=== PATIENT | male | born 1945 | race Caucasian/White ===

== ENCOUNTER 2017-10-01 13:53 | Emergency (ER) | payer OTHER ==
[2017-10-01 14:04] VITALS: TEMP 98.1
--- NOTE | 2017-10-01 14:10 | CPEKG ---
Heart Rate: 67 RR Interval: 896 P-R Interval: 209 QRSD Interval: 86 QT Interval: 372 QTC Interval: 393 P [place]: 45 QRS [place]: -25 T Wave [place]: 10 EKG Severity - ABNORMAL ECG - EKG Impression: SINUS RHYTHM EKG Impression: INFERIOR INFARCT, AGE INDETERMINATE EKG Impression: BORDERLINE R WAVE PROGRESSION, ANTERIOR LEADS Electronically Signed By: César Ty 01-Oct-2017 19:55:39
[2017-10-01] MEDS ORDERED: ASPIRIN 81 MG CHEWABLE TAB PO ONE (14:20)
[2017-10-01] MEDS ORDERED: NITROGLYCERIN 0.4 MG BTL SL ONE (14:21)
--- NOTE | 2017-10-01 14:24 | EDPHY ---
H & P Stated Complaint: left chest pains radiating to posterior neck constant x2 days Time Seen by Provider: 10/01/17 14:06 HPI/ROS: Chief Complaint: Chest pain HPI: 72-year-old male with a history of hypothyroidism presenting with 2 days of left upper chest tightness radiating to his jaw. Has been constant. About a 4/10. No cyst shortness of breath. It is not exertional. There are no aggravating or alleviating factors. Patient has also been having some skipped beats the last couple days. He does have a history of PVCs in the past which a workup by Cardiology and/or [facility]. He has not had a stress test. Does not have a history of coronary disease. Does not have a family history of coronary artery disease. Denies any fevers or chills. No pleuritic chest pain. No nausea or vomiting. No abdominal pain. No calf pain or swelling. He has been sleeping same number pelvis usual. ROS: 10 point Review of Systems is negative except as noted in the HPI. PMH: Hypothyroidism Social History: No smoking, occasional alcohol, occasional marijuana Family History: non-contributory Physical Exam: Gen: Awake, Alert, No Distress HEENT: Nose: no rhinorrhea Eyes: PERRLA, EOMI Mouth: Moist mucosa Neck: Supple, no JVD Chest: nontender, lungs clear to auscultation Heart: S1, S2 normal, no murmur Abd: Soft, non-tender, no guarding Back: no CVA tenderness, no midline tenderness Ext: no edema, non-tender Skin: no rash Neuro: CN II-XII intact, Sensation grossly intact, Strength 5/5 in bilateral upper and lower extremities - Personal History Current Tetanus/Diphtheria Vaccine: Unsure - Medical/Surgical History Hx Asthma: No Hx Chronic Respiratory Disease: No Hx Diabetes: No Hx Cardiac Disease: No Hx Renal Disease: No Hx Cirrhosis: No Hx Alcoholism: No Hx HIV/AIDS: No Hx Splenectomy or Spleen Trauma: No Other PMH: HERNIA, sinus surgery x2, cellulitis. hypothyroidism - Social History Smoking Status: Never smoked Constitutional: Initial Vital Signs Temperature (C) 36.7 C 10/01/17 14:01 Heart Rate 74 10/01/17 14:01 Respiratory Rate 18 10/01/17 14:01 Blood Pressure 138/107 H 10/01/17 14:01 O2 Sat (%) 97 10/01/17 14:01 O2 Delivery Mode Room Air Allergies/Adverse Reactions: amoxicillin Allergy (Mild, Verified 01/27/16 08:52) Rash amoxicillin trihydrate [From Amoxil] Allergy (Verified 11/20/15 17:18) Home Medications: Medication Instructions Recorded Levothyroxine [Synthroid 175 mcg 175 mcg PO DAILY 06/25/12 (RX)] Medical Decision Making - Diagnostics EKG Interpretation: ECG time 2:08 p.m., sinus rhythm with a rate of 67, normal axis, normal intervals, no acute ST or T-wave changes. He does have Q-waves in the inferior leads consistent with an old inferior infarct. This is unchanged from an ECG report from 10/15/[address] Colvin. Imaging Results: Imaging Impressions Chest X-Ray 10/01/17 14:19 Impression: 1. Stable heart size since August 2006 without evidence of failure. 2. No source for acute chest pain identified. Imaging: I viewed and interpreted images myself ED Course/Re-evaluation: 72-year-old male with no significant risk factors for coronary disease presenting with 2 days of chest discomfort. Patient is concerned because he had a co-worker recently have a heart attack. Pain is been constant for the last 2 days. His ECG does show an inferior infarct0 of undetermined age however the patient had the exact same findings on ECG over a year ago when he was seen by Cardiology. His troponin is negative. Chest x-ray is unremarkable. No evidence of acute coronary syndrome at this time. Will discharge with plans for follow-up with Cardiology for outpatient stress testing, he will return for any worsening symptoms. - Data Points Laboratory Results: Laboratory Results 10/01/17 14:14 10/01/17 14:14 10/01/17 10/01/17 14:14 14:14 WBC 7.18 10^3/uL 10^3/uL (3.80-9.50) RBC 4.51 10^6/uL 10^6/uL (4.40-6.38) Hgb 14.8 g/dL g/dL (13.7-17.5) Hct 42.2 % % (40.0-51.0) MCV 93.6 fL fL (81.5-99.8) MCH 32.8 pg pg (27.9-34.1) MCHC 35.1 g/dL g/dL (32.4-36.7) RDW 14.1 % % (11.5-15.2) Plt Count 348 10^3/uL 10^3/uL (150-400) MPV 9.4 fL fL (8.7-11.7) Neut % (Auto) 64.7 % % (39.3-74.2) Lymph % (Auto) 19.8 % % (15.0-45.0) Hardy % (Auto) 11.0 % % (4.5-13.0) Eos % (Auto) 3.5 % % (0.6-7.6) Baso % (Auto) 0.7 % % (0.3-1.7) Nucleat RBC Rel Count 0.0 % % (0.0-0.2) Absolute Neuts (auto) 4.65 10^3/uL 10^3/uL (1.70-6.50) Absolute Lymphs (auto) 1.42 10^3/uL 10^3/uL (1.00-3.00) Absolute Monos (auto) 0.79 10^3/uL 10^3/uL (0.30-0.80) Absolute Eos (auto) 0.25 10^3/uL 10^3/uL (0.03-0.40) Absolute Basos (auto) 0.05 10^3/uL 10^3/uL (0.02-0.10) Absolute Nucleated RBC 0.00 10^3/uL 10^3/uL (0-0.01) Immature Gran % 0.3 % % (0.0-1.1) Immature Gran # 0.02 10^3/uL 10^3/uL (0.00-0.10) Sodium 140 mEq/L mEq/L (134-144) Potassium 4.2 mEq/L mEq/L (3.5-5.2) Chloride 106 mEq/L mEq/L (97-110) Carbon Dioxide 22 mEq/l mEq/l (22-31) Anion Gap 12 mEq/L mEq/L (8-16) BUN 20 mg/dL mg/dL (7-23) Creatinine 0.9 mg/dL mg/dL (0.7-1.3) Estimated GFR > 60 Glucose 97 mg/dL mg/dL (70-100) Calcium 9.1 mg/dL mg/dL (8.5-10.4) Troponin I < 0.012 ng/mL ng/mL (0.000-0.034) Medications Given: Discontinued Medications Aspirin (Aspirin) 324 mg PO EDNOW ONE Stop: 10/01/17 14:21 Last Admin: 10/01/17 14:25 Dose: 324 mg Nitroglycerin (Nitrostat) 0.4 mg SL EDNOW ONE Stop: 10/01/17 14:22 Last Admin: 10/01/17 14:26 Dose: 0.4 mg Departure - Departure Disposition: Home, Routine, Self-Care Clinical Impression: Chest pain Condition: Good Instructions: Chest Pain (ED) Additional Instructions: Follow up with Cardiology in 3-4 days for outpatient stress testing and further evaluation. Return to the emergency department for worsening chest pain, shortness of breath , fainting, nausea, vomiting, or any other concerns. Referrals: Ari Cornell MD [Primary Care Provider] - As per Instructions Rubens Jimenez MD [Medical Doctor] - As per Instructions
[2017-10-01 14:26] LABS: PLATELET COUNT 348 10^3/uL (150-400)
[2017-10-01 14:29] VITALS: O2SAT 92
[2017-10-01 15:22] VITALS: BP 113/71; PULSE 62; RESP 20
== END 2017-10-01 15:27 | disposition home or self-care (01) ==
DX: R07.9 Chest pain, unspecified (principal)